=== PATIENT | female | born 1940 | race Caucasian/White ===

== ENCOUNTER 2021-10-02 09:45 | Inpatient (IN) | payer MEDICARE, OTHER ==
[~2021-10-02] VITALS: Ht 152.4 cm; Wt 71.9 kg
[2021-10-02 10:32] LABS: BASOPHIL 0.2 % (0-2); EOSINOPHIL 0 % (0-7); HCT 38.5 % (37.0-47.0); HGB 13.3 g/dl (12.5-16.0); LYMPHOCYTE 12.6 % (15-48); MCH 29.2 pg (25.0-31.0); MCHC 34.5 g/dL (32.0-36.0); MCV 84.6 fL (78.0-100.0); MONOCYTE 8.5 % (0-12); MPV 9.8 fL (6.0-9.5); NEUTROPHIL 78.5 % (41-80); NRBC 0; PLT 193 K/uL (150-400); RBC 4.55 M/uL (4.20-5.40); RDW 12.4 % (11.5-14.0)
[2021-10-02 10:36] LABS: INR 0.92 (0.9-1.2); PROTHROMBIN TIME 12.1 SECONDS (11.9-13.9); PTT 26.5 SECONDS (24.9-34.6)
[2021-10-02 10:57] LABS: ALBUMIN 3.5 g/dL (3.4-5.0); BILIRUBIN - TOTAL 0.3 mg/dL (0.2-1.0); BUN/CREAT RATIO (CALC) 21.7 RATIO; CREATININE 1.2 mg/dL (0.51-0.95); GLOBULIN (CALCULATION) 3.5 g/dL; MAGNESIUM 1.6 mg/dL (1.8-2.4); POTASSIUM 3.5 mmol/L (3.5-5.1)
[2021-10-02 11:26] LABS: BILIRUBIN NEGATIVE (NEGATIVE); BLOOD TRACE-INTACT Ery/uL (NEGATIVE); CLARITY CLEAR (CLEAR); COLOR YELLOW (YELLOW); GLUCOSE (U) NORMAL (NORMAL); LEUKOCYTES 2+ Leu/uL (NEGATIVE); NITRITE NEGATIVE (NEGATIVE); PROTEIN TRACE (LOW) mg/dL (NEGATIVE); SPECIFIC GRAVITY 1.025 (1.001-1.030); UROBILINOGEN 0.2 mg/dL (0.2-1.0)
[2021-10-02 13:14] LABS: INFLUENZA A NAA NEGATIVE (NEGATIVE)
[2021-10-02 13:17] LABS: CORONAVIRUS 2019 SARS-COV-2 POSITIVE (NEGATIVE)
[2021-10-02] MEDS ORDERED: CHOLECALCIFEROL PO (15:30)
[2021-10-02] MEDS ORDERED: NORVASC5 MG PO (15:30)
[2021-10-02] MEDS ORDERED: HCTZ12.5 MG PO (15:30)
[2021-10-02] MEDS ORDERED: COZAAR100 MG PO (15:31)
[2021-10-02] MEDS ORDERED: SYNTHROID50 MCG PO (15:31)
[2021-10-02] MEDS ORDERED: LOVASTATIN40 MG PO (15:31)
[2021-10-02] MEDS ORDERED: COREG 6.25MG6.25 MG PO (15:31)
[2021-10-02] MEDS ORDERED: CLONIDINE HCL0.2 MG PO (15:32)
[2021-10-02] MEDS ORDERED: ECOTRIN81 MG PO (15:33)
[2021-10-03 07:16] LABS: BASOPHIL 0.2 % (0-2); EOSINOPHIL 0 % (0-7); HCT 39.4 % (37.0-47.0); LYMPHOCYTE 12.7 % (15-48); MCH 28.6 pg (25.0-31.0); MCV 86.6 fL (78.0-100.0); MONOCYTE 6.3 % (0-12); MPV 9.7 fL (6.0-9.5); NEUTROPHIL 80.2 % (41-80); NRBC 0; PLT 220 K/uL (150-400); RBC 4.55 M/uL (4.20-5.40); RDW 12.7 % (11.5-14.0); WBC 6.2 K/uL (4.0-10.5)
[2021-10-03 08:05] LABS: BUN/CREAT RATIO (CALC) 17.4 RATIO; CREATININE 1.15 mg/dL (0.51-0.95); POTASSIUM 4.2 mmol/L (3.5-5.1)
[2021-10-03 08:07] LABS: MAGNESIUM 2.5 mg/dL (1.8-2.4)
[2021-10-04] MEDS ORDERED: LEVAQUIN500 MG PO (11:46)
[2021-10-04] MEDS ORDERED: DECADRON6 MG PO (11:46)
[2021-10-04] MEDS ORDERED: CEFDINIR300 MG PO (11:46)
--- NOTE | 2021-10-04 13:40 | NUR ---
10/04/ Referral made to [facility] per family request.
--- NOTE | 2021-10-04 15:26 | NUR ---
PATIENT DISCHARGED VIA WHEELCHAIR TO CARE OF DAUGHTER. IV DCD. 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 VERBALIZED UNDERSTANDING OF INSTRUCTIONS
== END 2021-10-04 14:10 | disposition home or self-care (01) | DRG 177 ==
LOC: FER 09:45 → FMS 13:39
PROVIDERS: Internal Medicine; ADMIT Internal Medicine
PROC: XW033E5 Introduction of Remdesivir Anti-infective into Peripheral Vein, Percutaneous Approach, New Technology Group 5 (ICD-10-PCS; principal; 2021-10-02)
PROC: 3E0333Z Introduction of Anti-inflammatory into Peripheral Vein, Percutaneous Approach (ICD-10-PCS; 2021-10-02)
PROC: 8E0ZXY6 Isolation (ICD-10-PCS; 2021-10-04)
DX: U07.1 COVID-19 (principal); J12.82 Pneumonia due to coronavirus disease 2019; K50.10 Crohn's disease of large intestine without complications; E87.1 Hypo-osmolality and hyponatremia; I13.0 Hypertensive heart and chronic kidney disease with heart failure and stage 1 through stage 4 chronic kidney disease, or unspecified chronic kidney disease; N17.9 Acute kidney failure, unspecified; E78.5 Hyperlipidemia, unspecified; Z90.710 Acquired absence of both cervix and uterus; Z28.310 Unvaccinated for COVID-19; N18.30 Chronic kidney disease, stage 3 unspecified; I50.9 Heart failure, unspecified; Z86.73 Personal history of transient ischemic attack (TIA), and cerebral infarction without residual deficits; Z82.49 Family history of ischemic heart disease and other diseases of the circulatory system; Z83.3 Family history of diabetes mellitus; Z79.899 Other long term (current) drug therapy
CPT/HCPCS: 36415; 71250; 80048; 80053; 81001; 82728; 83735; 84145; 84484; 85025; 85610; 85730; 87088; 87449; 93005; 97162; 97165; C9399; J0696; J1100; J1650; J1956; J2405; J2550; J3475; J7050; J7120; J8540; U0002